=== PATIENT | female | born 1960 | race Caucasian/White ===

== ENCOUNTER 2020-06-01 12:00 | Outpatient (CLI) | payer OTHER, SELFPAY ==
[~2020-06-01] VITALS: Ht 152.4 cm; Wt 60.3 kg
== END 2020-06-01 12:30 | disposition home or self-care (01) ==
LOC: SLB 12:00 → EDSTATUS 06-08 07:30
PROVIDERS: ATTEND Colon & Rectal Surgery
DX: Z01.812 Encounter for preprocedural laboratory examination (principal); Z20.828 Contact with and (suspected) exposure to other viral communicable diseases
CPT/HCPCS: U0003

== ENCOUNTER 2020-08-31 09:34 | Inpatient (IN) | payer OTHER, SELFPAY ==
[~2020-08-31] VITALS: Ht 147.3 cm; Wt 60.8 kg
[2020-08-31] MEDS ORDERED: ALVIMOPAN 12 MG CAPSULE PO ONE (10:16)
[2020-08-31] MEDS ORDERED: ONDANSETRON HCL 4 MG/2 ML VIAL IVP ONE (10:43)
[2020-08-31] MEDS ORDERED: ROCURONIUM BROMIDE 10 MG/ML (ZEMURON) IV ONE (10:43)
[2020-08-31] MEDS ORDERED: PHENYLEPHRINE HCL 10 MG/ML VIAL (NEOSYNEPHRINE) IV ONE (10:43)
[2020-08-31] MEDS ORDERED: MIDAZOLAM HCL 5 MG/5 ML VIAL IVP ONE (10:43)
[2020-08-31] MEDS ORDERED: NS 1000 ML IV.SOLN IV ONE (10:43)
[2020-08-31] MEDS ORDERED: WATER FOR IRRIGATION,STERILE 1,000 ML IRRIG.SOLN IR ONE (10:43)
[2020-08-31] MEDS ORDERED: GLYCOPYRROLATE 0.2 MG/ML VIAL IJ ONE (10:43)
[2020-08-31] MEDS ORDERED: PROPOFOL 200MG/ 20ML VIAL (DIPRIVAN) IV ONE (10:43)
[2020-08-31] MEDS ORDERED: fentaNYL CITRATE/PF 100 MCG/2 ML AMP IVP ONE (10:43)
[2020-08-31] MEDS ORDERED: NS IRRIG SOLN 1000 ML IR ONE (10:43)
[2020-08-31] MEDS ORDERED: DESFLURANE 15 MIN GAS INH ONE (10:43)
[2020-08-31] MEDS ORDERED: DEXAMETHASONE SOD PHOSPHATE 4 MG/ML VIAL IVP ONE (10:43)
[2020-08-31] MEDS ORDERED: METOPROLOL TARTRATE 5 MG/5 ML VIAL IVP ONE (10:43)
[2020-08-31] MEDS ORDERED: cefOXitin SODIUM 2 GM/VIAL (MEFOXIN) IV ONE (10:43)
[2020-08-31] MEDS ORDERED: BUPIVACAINE LIPOSOME/PF 266 MG/20 ML VIAL INFIL ONE (10:43)
[2020-08-31] MEDS ORDERED: cefOXitin SODIUM 2 GM in D5W 100 ML IV ONE (10:45)
[2020-08-31] MEDS ORDERED: MIDAZOLAM HCL 2 MG/2 ML VIAL (VERSED) IVP PRN (11:45)
[2020-08-31] MEDS ORDERED: METOCLOPRAMIDE HCL 10 MG/2 ML VIAL IVP PRN (11:45)
[2020-08-31] MEDS ORDERED: ONDANSETRON HCL 4 MG/2 ML VIAL IVP PRN ×2 (11:45→13:15)
[2020-08-31] MEDS ORDERED: LR 1,000 ML IV SCH (11:45)
[2020-08-31] MEDS ORDERED: HYDROmorphone 1 MG INJ. 1 MG/ML AMPUL IVP PRN ×3 (11:45→14:45)
[2020-08-31] MEDS ORDERED: MEPERIDINE HCL/PF 25 MG/ML DISP.SYRIN IVP PRN (11:45)
[2020-08-31] MEDS ORDERED: D5/0.45 NS 1,000 ML IV SCH (13:15)
[2020-08-31] MEDS ORDERED: NALOXONE HCL 0.4 MG/ML AMP (NARCAN) IVP PRN ×6 (13:15→14:45)
[2020-08-31] MEDS ORDERED: HYDROcodone/ACETAMIN 5-325 MG TAB (NORCO/ VICODIN) PO PRN ×2 (13:15)
[2020-08-31] MEDS ORDERED: ACETAMINOPHEN 325 MG TABLET PO PRN (13:15)
[2020-08-31] MEDS ORDERED: HYDROmorphone 1 MG INJ. 1 MG/ML AMPUL ONE ×2 (13:32→14:23)
[2020-08-31] MEDS ORDERED: ONDANSETRON HCL 4 MG/2 ML VIAL ONE (13:32)
[2020-08-31] MEDS: HYDROmorphone 1 MG INJ. 1 MG/ML AMPUL IVP PRN ×2 (13:35→13:40)
[2020-08-31 13:49] LABS: HEMATOCRIT 43.9 % (36-48); HEMOGLOBIN 14.6 g/dL (12.0-16.0)
[2020-08-31 13:59] LABS: CALCIUM 9.1 mg/dL (8.4-11.0); CREATININE 1.66 mg/dL (0.55-1.30)
[2020-08-31 15:32] VITALS: BP_SYST 145
[2020-08-31 16:05] VITALS: BP_SYST 145
[2020-08-31 16:17] VITALS: BP_SYST 145
[2020-08-31] MEDS: HYDROcodone/ACETAMIN 5-325 MG TAB (NORCO/ VICODIN) PO PRN (17:45)
[2020-08-31 20:00] VITALS: BP_SYST 124
[2020-08-31] MEDS: ALVIMOPAN 12 MG CAPSULE PO SCH (21:04)
[2020-08-31] MEDS: cefOXitin SODIUM 2 GM in D5W 100 ML IV SCH (21:05)
[2020-08-31] MEDS: FAMOTIDINE PF 20 MG/2 ML VIAL IVP SCH (21:05)
[2020-09-01] MEDS: HYDROmorphone 1 MG INJ. 1 MG/ML AMPUL IVP PRN (00:27)
[2020-09-01] MEDS: D5/0.45 NS 1,000 ML IV SCH ×4 (00:45→20:30)
[2020-09-01 06:34] LABS: BASOPHILS # (AUTO) 0.1 K/uL (0.0-0.2); BASOPHILS % (AUTO) 0.5 % (0.0-2.0); EOSINOPHILS % (AUTO) 0.1 % (0.0-4.0); HEMATOCRIT 37.9 % (36-48); HEMOGLOBIN 12.8 g/dL (12.0-16.0); LYMPHOCYTES # (AUTO) 1.4 K/uL (1.0-5.5); LYMPHOCYTES % (AUTO) 13.9 % (20.5-51.5); MEAN CORPUSCULAR HEMOGLOBIN 31 pg (27-31); MEAN CORPUSCULAR HGB CONC 34 % (32-36); MEAN CORPUSCULAR VOLUME 92 fL (79.0-98.0); MONOCYTES # (AUTO) 0.8 K/uL (0.0-1.0); MONOCYTES % (AUTO) 8.1 % (1.7-9.3); NEUTROPHILS % (AUTO) 77.4 % (40.0-70.0); PLATELET COUNT (AUTO) 149 K/uL (130-430); RED BLOOD CELL COUNT(AUTO) 4.13 MIL/uL (4.2-6.2); RED CELL DISTRIBUTION WIDTH 13.3 % (9.0-15.0); WHITE BLOOD COUNT (AUTO) 10.3 K/uL (4.8-10.8)
[2020-09-01 06:44] LABS: ALBUMIN 3.2 g/dL (3.4-4.8); CALCIUM 8.3 mg/dL (8.4-11.0); CREATININE 0.99 mg/dL (0.55-1.30); POTASSIUM 3.9 mmol/L (3.5-5.1); TOTAL BILIRUBIN 0.4 mg/dL (0.0-1.0)
[2020-09-01 08:00] VITALS: BP_SYST 124
[2020-09-01] MEDS: FAMOTIDINE PF 20 MG/2 ML VIAL IVP SCH ×2 (08:30→20:29)
[2020-09-01] MEDS: ALVIMOPAN 12 MG CAPSULE PO SCH ×2 (08:30→20:29)
[2020-09-01] MEDS: cefOXitin SODIUM 2 GM in D5W 100 ML IV SCH (08:32)
[2020-09-01] MEDS: HYDROcodone/ACETAMIN 5-325 MG TAB (NORCO/ VICODIN) PO PRN ×2 (08:32→17:17)
[2020-09-01] MEDS: ENOXAPARIN SODIUM 30 MG/0.3 ML SYRINGE SUBCUT SCH (08:32)
[2020-09-01 12:18] VITALS: BP_SYST 114
[2020-09-01 16:46] VITALS: BP_SYST 118
[2020-09-01] MEDS ORDERED: METOCLOPRAMIDE HCL 10 MG/2 ML VIAL ONE (17:12)
[2020-09-01] MEDS: METOCLOPRAMIDE HCL 10 MG/2 ML VIAL IVP SCH (17:12)
[2020-09-02] VITALS: BP_SYST 109
[2020-09-02] MEDS: METOCLOPRAMIDE HCL 10 MG/2 ML VIAL IVP SCH ×4 (06:00→17:04)
[2020-09-02] MEDS: D5/0.45 NS 1,000 ML IV SCH ×2 (06:45→11:03)
[2020-09-02 08:00] VITALS: BP_SYST 113
[2020-09-02] MEDS: FAMOTIDINE PF 20 MG/2 ML VIAL IVP SCH ×2 (08:56→20:30)
[2020-09-02] MEDS: HYDROcodone/ACETAMIN 5-325 MG TAB (NORCO/ VICODIN) PO PRN ×5 (08:57→20:35)
[2020-09-02] MEDS: ALVIMOPAN 12 MG CAPSULE PO SCH ×2 (08:57→20:30)
[2020-09-02] MEDS: ENOXAPARIN SODIUM 30 MG/0.3 ML SYRINGE SUBCUT SCH (09:04)
[2020-09-02] MEDS ORDERED: METOCLOPRAMIDE HCL 10 MG/2 ML VIAL ONE ×2 (11:02→17:02)
[2020-09-02 12:47] VITALS: BP_SYST 94
[2020-09-02 16:56] VITALS: BP_SYST 98
[2020-09-02 19:00] VITALS: BP_SYST 115
[2020-09-03] MEDS: HYDROcodone/ACETAMIN 5-325 MG TAB (NORCO/ VICODIN) PO PRN ×2 (03:17→10:50)
[2020-09-03] MEDS: D5/0.45 NS 1,000 ML IV SCH (03:17)
[2020-09-03] MEDS ORDERED: METOCLOPRAMIDE HCL 10 MG/2 ML VIAL ONE ×2 (06:48→11:17)
[2020-09-03] MEDS: METOCLOPRAMIDE HCL 10 MG/2 ML VIAL IVP SCH ×3 (07:00→11:53)
[2020-09-03 08:47] VITALS: BP_SYST 115
[2020-09-03 09:29] VITALS: BP_SYST 118
[2020-09-03] MEDS: FAMOTIDINE PF 20 MG/2 ML VIAL IVP SCH (09:42)
[2020-09-03] MEDS: ENOXAPARIN SODIUM 30 MG/0.3 ML SYRINGE SUBCUT SCH (09:45)
[2020-09-03] MEDS: ALVIMOPAN 12 MG CAPSULE PO SCH (09:59)
[2020-09-03 11:55] VITALS: BP_SYST 130
== END 2020-09-03 12:10 | disposition home or self-care (01) | DRG 330 ==
LOC: SMU 09:34 → EDSTATUS 11:35
PROVIDERS: ADMIT Colon & Rectal Surgery; ATTEND Colon & Rectal Surgery
PROC: 0DNE0ZZ Release Large Intestine, Open Approach (ICD-10-PCS; 2020-08-31)
PROC: 0WQF0ZZ Repair Abdominal Wall, Open Approach (ICD-10-PCS; 2020-08-31)
PROC: 0FT40ZZ Resection of Gallbladder, Open Approach (ICD-10-PCS; 2020-08-31)
PROC: 0DQE0ZZ Repair Large Intestine, Open Approach (ICD-10-PCS; principal; 2020-08-31 10:58)
DX: K57.32 Diverticulitis of large intestine without perforation or abscess without bleeding (principal); K80.10 Calculus of gallbladder with chronic cholecystitis without obstruction; K57.30 Diverticulosis of large intestine without perforation or abscess without bleeding; K66.0 Peritoneal adhesions (postprocedural) (postinfection); K82.8 Other specified diseases of gallbladder; K43.5 Parastomal hernia without obstruction or gangrene
CPT/HCPCS: 36415; 80048; 80053; 85018-TC; 85025; 86886; 86900; 86901; 87081; 88304; 94010; 97110-GP; 97112-GP; 97163; 97530-GP; C1727; C9290; J0694; J1100; J1170; J1650; J2250; J2370; J2405; J2704; J2765; J3010; J3490; J7030; J7060; Q9967; U0003